=== PATIENT | female | born 2000 | race Two or more races ===

== ENCOUNTER 2024-06-02 05:19 | Day surgery (SDC) | payer MEDICAID, SELFPAY ==
[2024-06-02] VITALS (17 sets, daily range): BP systolic 103–123; BP diastolic 63–88; PULSE 99–125; RESP 13–24; TEMP 36.2–37.3; O2SAT 95–100; BMI 33.3; BMI 34.0
--- NOTE | 2024-06-02 05:50 | PD.EDRME ---
Rapid Medical Screening Exam E Arrival date/time: 06/02/24 05:19 23-year-old female status post elective reports with complaints of shortness of breath and dizziness Chief Complaint: Shortness of Breath/Dyspnea Vital signs: Vital Signs Temperature 98.9 F 06/02/24 05:33 Pulse Rate 125 H 06/02/24 05:33 Respiratory Rate 24 H 06/02/24 05:33 Blood Pressure 116/77 06/02/24 05:33 Pulse Oximetry (%) 100 06/02/24 05:33 Oxygen Delivery Method Room Air 06/02/24 05:33
[2024-06-02 06:21] LABS: Collection Type, Urine Clean Catch
[2024-06-02 06:22] LABS: Alanine Aminotransferase 11 U/L (10-49); Albumin, Serum 3.6 gm/dL (3.5-5.0); Albumin/Globulin Ratio 1.9 (1.2-2.2); Alkaline Phosphatase 38 U/L (46-116); Anion Gap 7 (7-16); Aspartate Amino Transferase 23 U/L (0-34); BUN/Creatinine Ratio 15 Ratio (12-20); Bilirubin,Total 0.2 mg/dL (0.3-1.2); Blood Urea Nitrogen 9 mg/dL (9-23); Calcium 8.4 mg/dL (8.3-10.6); Calcium (Corrected) 8.7 mg/dL (8.5-10.1); Carbon Dioxide 25.6 mMol/L (20.0-31.0); Chloride 109 mMol/L (98-107); Creatinine (Component) 0.6 mg/dL (0.6-1.3); Estimated Creatinine Clearance 160.9 mL/min (>60); Globulin 1.9 gm/dL (2.3-3.5); Glucose 110 mg/dL (74-106); Osmolality,Calculated 282 (275-295); Sodium 142 mMol/L (136-145); Total Protein 5.5 gm/dL (5.7-8.2); eGFR > 60 See Note
[2024-06-02 06:49] LABS: Basophils % (Auto) 0 % (0-2.5); Eosinophils % (Auto) 0 % (0-10); Immature Granulocytes % (Auto) 1 % (0-0); Immature Granulocytes Auto 0.12 Thou/mm3 (0.00-0.00); Lymphocytes # (Auto) 2.6 Thou/mm3 (1.0-4.8); Lymphocytes % (Auto) 26 % (10-50); Mean Corpuscular HGB Conc 33.3 g/dl (31.0-37.0); Mean Corpuscular Hemoglobin 32.3 pg (25.0-35.0); Mean Corpuscular Volume 97 fL (80-100); Monocytes # (Auto) 0.5 Thou/mm3 (0.0-0.8); Monocytes % (Auto) 5 % (0-12); Neutrophils # (Auto) 6.6 Thou/mm3 (1.8-7.7); Neutrophils % (Auto) 67 % (37-80); Nucleated Red Blood Cell # 0.03 Thou/mm3 (0.00-0.00); Nucleated Red Blood Cell % 0 /100 WBC (0); Platelet Count 211 Thou/mm3 (140-440); RDW Standard Deviation 49.2 fL (36.4-46.3); Red Blood Count 1.61 Miln/mm3 (4.00-5.20)
[2024-06-02 07:07] LABS: Hematocrit 15.6 % (36.0-46.0); Hemoglobin 5.2 g/dL (12.0-16.0)
--- NOTE | 2024-06-02 07:34 | PC.NURSE ---
Pt. here from home to room 18, pt. crying saying she had a miscarriage. Pt. states she is . Pt. states she has a 5 year old son at home. Offered tissues and to see if pt. wanted any family bedside and pt. states no at this time.
[2024-06-02 07:46] LABS: Bilirubin,Urine Negative (Negative); Blood,Urine 2+ (Negative); Clarity,Urine Clear (Clear/Hazy); Color,Urine Lt-Yellow (Lt Yel-Yel); Culture Indicated,Urine Not Indicated; Glucose, Urine Negative (Negative); Ketones,Urine Negative (Negative); Leukocyte Esterase,Urine Negative (Negative); Nitrite,Urine Negative (Negative); Protein,Urine Negative (Neg - Trace); RBC,Urine 5 /hpf (0-3); Specific Gravity,Urine 1.018 (1.001-1.035); Squamous Epithelial Cell,Urine 2 /hpf (0-5); Urobilinogen,Urine Negative mg/dL (0.0-1.0); WBC,Urine 3 /hpf (0-5)
--- NOTE | 2024-06-02 07:54 | PC.NURSE ---
Pt. s/o at bedside.
--- NOTE | 2024-06-02 09:05 | EDNOTE_ITS ---
ED General RME/HPI General Chief complaint: Shortness of Breath/Dyspnea Stated complaint: SOB, HEADACHE AND VAGINAL BLEEDING Time Seen by Provider: 06/02/24 08:36 Arrival date/time: 06/02/24 05:19 RME / HPI RME / HPI narrative: Patient is a 23 years old female s/p recent elective medical presented to the ED complaining of SOB and vaginal bleeding. She report she had medical at 4 weeks of gestation in clinic on 05/29/2024 and developed vaginal bleeding since then which never resolved. She reports that she started feeling short of breath yesterday and was progressively worse. She also reports associated palpitations, weakness, chills and headache. She denies any fever, chest pain, difficulty urinating or dysuria symptoms. She reports shooting abdominal pain on palpation. The blood is not a foul smelling per patient. Her boyfriend is at the bedside. Related Data Previous Rx's ?Medication ?Instructions ?Recorded doxycycline hyclate 100 mg capsule 100 mg PO BID #6 ca ps 06/02/24 ferrous sulfate 325 mg (65 mg 325 mg PO QDAY #60 tabs 06/02/24 iron) tablet ibuprofen 800 mg tablet 800 mg PO Q8H PRN pain #30 t abs 06/02/24 Allergies Allergy/AdvReac Type Severity Reaction Status Date / Time bee venom protein (honey bee) Allergy Severe Difficulty Verified 09/03/23 15:24 Breathing Review of Systems Review of Systems Systems Reviewed: All systems reviewed, normal except as documented ED Exam Narrative Physical exam: Gen: Well-developed and well-nourished female. HEENT: NCAT, PERRLA, EOMI, MMM, pale conjunctivae. CVS: normal S1 and S2. Regular tachycardia. No M/R/G. Resp: CTA B/L. No rhonchi, rales, crackles or wheezing. Abd: soft, tender in lower abdomen, non-distended. BS+ in all 4 quadrants. MSK: Good ROM in BUE & BLE. No edema or rash. Neuro: CN II-XII grossly intact. Strength 5/5 in BUE & BLE. Alert and oriented x3. Psych: appropriate mood and affect. Course Course Course Narrative: Patient was found to have Hgb of 5.2 and 2 units of pRBCs were ordered. Pelvic US was positive for retained products of conception. OBGYN consult is ordered, Dr. Sesay was contacted over the phone and agreed to evaluated the patient. Patient was evaluated by OBGYN and will be admitted for D&C. Quality Measures none Orders Category Date Time Status Patient Condition Routine Admission 06/02/24 15:[address] in Surgical Day Care Routine Admission 06/02/24 14:11 Active COVID-19 Screening Questionnaire NOW Care 06/02/24 12:03 Completed Decision to Admit X1 Care 06/02/24 12:03 Completed Intake and Output Routine Care 06/02/24 15:21 Ordered Notify provider NEEDED Care 06/02/24 15:20 Completed Specimen to pathology NOW Care 06/02/24 14:11 Completed Transfuse,blood/blood products NOW Care 06/02/24 08:47 Completed Turn, Cough, and Deep Breathe NEEDED Care 06/02/24 15:21 Completed Consult to Gynecology Stat Cons 06/02/24 12:01 Ordered Diet Regular Diet 06/02/24 Dinner Active Discharge Routine Discharge 06/02/24 21:05 Active US pelvic complete Stat Exams 06/02/24 09:15 Completed CBC Stat Lab 06/02/24 05:50 Completed CBC Timed Lab 06/02/24 18:53 Completed CMP [Comprehensive Metabolic Panel] Stat Lab 06/02/24 05:50 Completed Path Review Blood Smear Stat Lab 06/02/24 05:50 Completed Type and Screen Stat Lab 06/02/24 07:34 Completed UA, C/S IF [Urinalysis, C/S if Indicated] Stat Lab 06/02/24 06:14 Completed rbc [Red Blood Cells] Stat Lab 06/02/24 07:34 Completed Acetaminophen Ivpb [Ofirmev Inj] Med 06/02/24 14:48 Discontinued 1,000 mg in 100 ml IV Q6HR Acetaminophen Ivpb [Ofirmev Inj] Med 06/03/24 00:00 Discontinued 1,000 mg in 100 ml IV Q6HR Dexamethasone Inj [Decadron Inj] Med 06/02/24 14:36 Discontinued 10 mg .ROUTE .STK-MED ONE Doxycycline Inj [Vibramycin Inj] 100 mg Med 06/02/24 13:21 Discontinued Sodium Chloride 0.9% (Pop) [NS 0.9% mini bag] 100 ml IV X1 Ibuprofen Tab [Motrin Tab] Med 06/02/24 16:50 Discontinued 800 mg PO Q8HR PRN Meperidine Inj [Demerol Inj] Med 06/02/24 14:47 Discontinued 12.5 mg IV Q5M PRN Methylergonovine Inj [Methergine Inj] Med 06/02/24 14:54 Discontinued 0.2 mg .ROUTE .STK-MED ONE Methylergonovine Inj [Methergine Inj] Med 06/02/24 13:51 Discontinued 0.2 mg IM X1 ONE Morphine Inj Med 06/02/24 14:47 Discontinued 3 mg IV Q5M PRN Ondansetron Inj [Zofran Inj] Med 06/02/24 14:36 Discontinued 4 mg .ROUTE .STK-MED ONE Ondansetron Inj [Zofran Inj] Med 06/02/24 14:47 Discontinued 4 mg IV X1 ONE Propofol Inj [Diprivan Inj] Med 06/02/24 13:52 Discontinued 200 mg IV .STK-MED ONE fentaNYL INJ [Sublimaze Inj] Med 06/02/24 13:53 Discontinued 100 mcg .ROUTE .STK-MED ONE fentaNYL INJ [Sublimaze Inj] Med 06/02/24 14:47 Discontinued 25 mcg IV Q5M PRN Code Status Routine Oth 06/02/24 15:20 Completed Late Tray Request Routine Oth 06/02/24 18:01 Active Oxygen Delivery PRN RT 06/02/24 14:47 Completed Transfer Order Routine Transfer 06/02/24 15:19 Completed Vital Signs Vital signs: Vital Signs Temperature 98.9 F 06/02/24 05:33 Pulse Rate 125 H 06/02/24 05:33 Respiratory Rate 24 H 06/02/24 05:33 Blood Pressure 116/77 06/02/24 05:33 Pulse Oximetry (%) 100 06/02/24 05:33 Oxygen Delivery Method Room Air 06/02/24 05:33 [facility] Patient data External records reviewed:: [facility] previous records Clinical information provided by:: patient and family Social determinants that could affect healthcare access:: none Patient has the following chronic illnesses:: none How is presenting disease/condition affected by chronic disease/condition?: no chronic disease Evaluation data The following diagnostics were reviewed and interpreted by me:: lab results and radiology exam(s) Lab and/or radiology exams considered but not ordered:: CT AP Interpretation Summary: Findings consistent with retained products of conception and active bleeding. Medications Medications considered but not ordered:: none Medication administrations:: Medication Administration History Discontinued Medications Dexamethasone Sodium Phosphate (Dexamethasone Sod Phos Inj 10 Mg/Ml Vial) Confirm Administered Dose 10 mg .ROUTE .STK-MED ONE Stop: 06/02/24 14:37 Fentanyl Citrate (Fentanyl Cit Inj 50 Mcg/Ml Amp 2ml) Confirm Administered Dose 100 mcg .ROUTE .STK-MED ONE Stop: 06/02/24 13:54 Fentanyl Citrate (Fentanyl Cit Inj 50 Mcg/Ml Amp 2ml) 25 mcg IV Q5M PRN PRN Reason: PAIN SCALE 1-3 (mild Stop: 06/02/24 16:48 Doxycycline Hyclate 100 mg/ (Sodium Chloride) 100 mls @ 100 mls/hr IV X1 ONE Stop: 06/02/24 14:20 Last Admin: 06/02/24 16:37 Dose: Not Given Documented By: TD Non-Admin Reason: Manual Charge by Anesthesia Acetaminophen (Ofirmev Inj) 1,000 mg in 100 mls @ 250 mls/hr IV Q6HR LAURIE Stop: 06/03/24 06:23 Last Admin: 06/02/24 16:46 Dose: 250 mls/hr Documented By: TD Acetaminophen (Ofirmev Inj) 1,000 mg in 100 mls @ 250 mls/hr IV Q6HR [facility] Stop: 06/03/24 12:23 Ibuprofen (Ibuprofen Tab 400 Mg Tablet) 800 mg PO Q8HR PRN PRN Reason: PAIN OR FEVER > 101 Stop: 07/02/24 16:49 Meperidine HCl (Meperidine Inj 50 Mg/Ml Vial) 12.5 mg IV Q5M PRN PRN Reason: PAIN SCALE 1-3 (mild Stop: 06/02/24 16:48 Methylergonovine Maleate (Methylergonovine Inj 0.2 Mg/Ml Vial) 0.2 mg IM X1 ONE Stop: 06/02/24 13:52 Last Admin: 06/02/24 16:38 Dose: Not Given Documented By: TD Non-Admin Reason: Manual Charge by Anesthesia Methylergonovine Maleate (Methylergonovine Inj 0.2 Mg/Ml Vial) Confirm Administered Dose 0.2 mg .ROUTE .STK-MED ONE Stop: 06/02/24 14:55 Morphine Sulfate (Morphine Sulf Inj 10 Mg/Ml Vial) 3 mg IV Q5M PRN PRN Reason: PAIN SCALE 4-6 (Moderate Stop: 06/02/24 16:48 Ondansetron HCl (Ondansetron Inj 2 Mg/Ml Inj 2 Ml) Confirm Administered Dose 4 mg .ROUTE .STK-MED ONE Stop: 06/02/24 14:37 Ondansetron HCl (Ondansetron Inj 2 Mg/Ml Inj 2 Ml) 4 mg IV X1 ONE Stop: 06/02/24 14:48 Last Admin: 06/02/24 17:32 Dose: Not Given Documented By: TD Non-Admin Reason: no nausea Propofol (Propofol Inj 10 Mg/Ml Vial 20 Ml) Confirm Administered Dose 200 mg IV .STK-MED ONE Stop: 06/02/24 13:53 Zofran 4 mg x1. Consultations Consultation(s) initiated? (list below): Yes Consultation #1 (Physician, Specialty, Details): Dr. Sesay, OBGYN, possible D&C. Diagnosis Differential Diagnosis ED Complaint MDM: Acute appendicitis, ovarian torsion, ectopic , retained POC Most likely diagnosis given after review of the tests above:: Retained products of conception s/p medical Admission Indicated Admission indicated?: indicated Explain why admission is indicated or not indicated:: Patient is actively bleeding and has retained products of conception s/p medical , she needs emergent D&C and admission for close observation and blood transfusion. Admission Request Was there a request for admission?: Yes Admission Attestation Admission request attestation: Discussed case with Dr. Sesay from OBGYN service regarding admission. Discussed patients ED course, exam findings, labs, and radiology results. The OBGYN agrees to accept the patient for admission. Disposition Plan Disposition Plan: Admit Medical Decision Making MDM Narrative MDM Narrative: Based on history, radiological and laboratory findings patient has retained products of conception s/p medical and severe anemia requiring blood transfusion. She will need an emergent D&C and admission for closer observation. Differential Diagnosis Differential Diagnosis: Acute appendicitis, ovarian torsion, ectopic , retained POC Lab Data 06/02/24 18:53 06/02/24 05:50 Labs: Lab Results 06/02/24 06/02/24 06/02/24 Range/Units 05:50 06:14 07:34 WBC 10.0 (3.6-11.0) Thou/mm3 RBC 1.61 L* (4.00-5.20) Miln/mm3 Hgb 5.2 L* (12.0-16.0) g/dL Hct 15.6 L* (36.0-46.0) % MCV 97 (80-100) fL MCH 32.3 (25.0-35.0) pg MCHC 33.3 (31.0-37.0) g/dl RDW Std Deviation 49.2 H (36.4-46.3) fL Plt Count 211 (140-440) Thou/mm3 Neut % (Auto) 67 (37-80) % Lymph % (Auto) 26 (10-50) % [place] % (Auto) 5 (0-12) % Eos % (Auto) 0 (0-10) % Baso % (Auto) 0 (0-2.5) % Neut # (Auto) 6.6 (1.8-7.7) Thou/mm3 Lymph # (Auto) 2.6 (1.0-4.8) Thou/mm3 [place] # (Auto) 0.5 (0.0-0.8) Thou/mm3 Eos # (Auto) 0.0 (0.0-0.5) Thou/mm3 Baso # (Auto) 0.0 (0.0-0.2) Thou/mm3 Immature Gran # (Auto) 0.12 H (0.00-0.00) Thou/mm3 Absolute Nucleated RBC 0.03 H (0.00-0.00) Thou/mm3 Immature Gran % 1 H (0-0) % Nucleated RBC % 0 (0) /100 WBC Smear Path Review Sent to Pathologist Sodium 142 (136-145) mMol/L Potassium 4.0 (3.4-5.1) mMol/L Chloride 109 H (98-107) mMol/L Carbon Dioxide 25.6 (20.0-31.0) mMol/L Anion Gap 7 (7-16) BUN 9 (9-23) mg/dL Creatinine 0.6 (0.6-1.3) mg/dL Estim Creat Clear Calc 160.9 (>60) mL/min eGFR > 60 (60 - ) See Note BUN/Creatinine Ratio 15 (12-20) Ratio Glucose 110 H (74-106) mg/dL Calculated Osmolality 282 (275-295) Calcium 8.4 (8.3-10.6) mg/dL Corrected Calcium 8.7 (8.5-10.1) mg/dL Total Bilirubin 0.2 L (0.3-1.2) mg/dL AST 23 (0-34) U/L ALT 11 (10-49) U/L Alkaline Phosphatase 38 L (46-116) U/L Total Protein 5.5 L (5.7-8.2) gm/dL Albumin 3.6 (3.5-5.0) gm/dL Globulin 1.9 L (2.3-3.5) gm/dL Albumin/Globulin Ratio 1.9 (1.2-2.2) Ur Collection Type Clean Catch Urine Color Lt-Yellow (Lt Yel-Yel) Urine Clarity Clear (Clear/Hazy) Urine pH 7.0 (5.0-7.0) Ur Specific [place] 1.018 (1.001-1.035) Urine Protein Negative (Neg - Trace) Urine Glucose (UA) Negative (Negative) Urine Ketones Negative (Negative) Urine Blood 2+ A (Negative) Urine Nitrite Negative (Negative) Urine Bilirubin Negative (Negative) Urine Urobilinogen (Auto) Negative (0.0-1.0) mg/dL Ur Leukocyte Esterase Negative (Negative) Urine RBC 5 H (0-3) /hpf Urine WBC 3 (0-5) /hpf Ur Squamous Epith Cells 2 (0-5) /hpf Urine Bacteria None (None) Ur Culture Indicated? Not Indicated Blood Type O Positive Antibody Screen NEGATIVE Crossmatch See Detail Blood Bank Wristband ID Yes 06/02/24 Range/Units 18:53 WBC 14.1 H D (3.6-11.0) Thou/mm3 RBC 2.83 L (4.00-5.20) Miln/mm3 Hgb 8.7 L D (12.0-16.0) g/dL Hct 25.0 L (36.0-46.0) % MCV 88 (80-100) fL MCH 30.7 (25.0-35.0) pg MCHC 34.8 (31.0-37.0) g/dl RDW Std Deviation 53.9 H (36.4-46.3) fL Plt Count 218 (140-440) Thou/mm3 Neut % (Auto) 93 H (37-80) % Lymph % (Auto) 5 L (10-50) % [place] % (Auto) 1 (0-12) % Eos % (Auto) 0 (0-10) % Baso % (Auto) 0 (0-2.5) % Neut # (Auto) 13.1 H (1.8-7.7) Thou/mm3 Lymph # (Auto) 0.8 L (1.0-4.8) Thou/mm3 [place] # (Auto) 0.1 (0.0-0.8) Thou/mm3 Eos # (Auto) 0.0 (0.0-0.5) Thou/mm3 Baso # (Auto) 0.0 (0.0-0.2) Thou/mm3 Immature Gran # (Auto) 0.18 H (0.00-0.00) Thou/mm3 Absolute Nucleated RBC 0.03 H (0.00-0.00) Thou/mm3 Immature Gran % 1 H (0-0) % Nucleated RBC % 0 (0) /100 WBC Smear Path Review Sodium (136-145) mMol/L Potassium (3.4-5.1) mMol/L Chloride (98-107) mMol/L Carbon Dioxide (20.0-31.0) mMol/L Anion Gap (7-16) BUN (9-23) mg/dL Creatinine (0.6-1.3) mg/dL Estim Creat Clear Calc (>60) mL/min eGFR (60 - ) See Note BUN/Creatinine Ratio (12-20) Ratio Glucose (74-106) mg/dL Calculated Osmolality (275-295) Calcium (8.3-10.6) mg/dL Corrected Calcium (8.5-10.1) mg/dL Total Bilirubin (0.3-1.2) mg/dL AST (0-34) U/L ALT (10-49) U/L Alkaline Phosphatase (46-116) U/L Total Protein (5.7-8.2) gm/dL Albumin (3.5-5.0) gm/dL Globulin (2.3-3.5) gm/dL Albumin/Globulin Ratio (1.2-2.2) Ur Collection Type Urine Color (Lt Yel-Yel) Urine Clarity (Clear/Hazy) Urine pH (5.0-7.0) Ur Specific [place] (1.001-1.035) Urine Protein (Neg - Trace) Urine Glucose (UA) (Negative) Urine Ketones (Negative) Urine Blood (Negative) Urine Nitrite (Negative) Urine Bilirubin (Negative) Urine Urobilinogen (Auto) (0.0-1.0) mg/dL Ur Leukocyte Esterase (Negative) Urine RBC (0-3) /hpf Urine WBC (0-5) /hpf Ur Squamous Epith Cells (0-5) /hpf Urine Bacteria (None) Ur Culture Indicated? Blood Type Antibody Screen Crossmatch Blood Bank Wristband ID Discharge Plan Plan Patient Disposition: Admit Acute Care w/in Hospital Patient condition on transfer: Stable Problem List Clinical Impression: Acute blood loss anemia, Retained products of conception Patient/Caregiver Discharge Instructions Discharge Activity: activity as tolerated and other Other Activity Instructions:: vaginal rest for 2 weeks, 2 days off from work to rest and recover Diet Instructions: regular diet
--- NOTE | 2024-06-02 09:15 | XR_ITS ---
Examination: Pelvic ultrasound, transabdominal, complete Technique: Transabdominal ultrasound of the pelvis performed using grayscale imaging Date and time of exam: June 02, 2024 1030 hrs. Indications: Status post May 29, 2024 with vaginal bleeding Findings: Uterus 11.1 cm with retained product of conception measuring up to 3.3 cm in the cervix Right ovary 3.2 cm arterial flow Left ovary 3.5 cm arterial flow 32 mm cyst Impression: Positive for retained products of conception
--- NOTE | 2024-06-02 11:20 | PC.NURSE ---
Pt. signed consent for blood transfusion.
--- NOTE | 2024-06-02 11:24 | PC.NURSE ---
Pt. here from home to room 18, pt. states she was SOB even when she laid down, pt. states she felt like she was going to pass out, pt. states she has been vaginal bleeding since Monday, pt. states she had a mis carry on Monday. Pt. states she is . Pt. states today she couldn't even open her eyes because her head hurt so bad. Pt. states she has been using 3 fabiola pads a day.
--- NOTE | 2024-06-02 11:25 | PC.NURSE ---
Pt. lips are pale and pt.'s pale in her face.
--- NOTE | 2024-06-02 12:35 | PC.NURSE ---
Dr. Sesay is bedside talking with pt.
--- NOTE | 2024-06-02 13:05 | PD.GYNHP ---
Documentation for date of: 06/02/24 HISTOLOGY AIDE - HPI History of Present Illness History of present illness: Alia is a 23yo presenting to ER with shortness of breath since 05/30 after taking oral medication for medical termination of on 05/29. She states within an hour of taking the medication (prescribed by a practitioner in [place]- she can't remember the name of the facility), she began bleeding. She had heavy bleeding, cramping, passage of tissue on 05/29 and 05/30, then began feeling short of breath on 05/30. She didn't have further passage of tissue and bleeding was more like a period since that time. No syncope. She has history of 1 uncomplicated term in 2019. Review of Systems Review of Systems Narrative Review of Systems: Review of Systems Systems Reviewed: All systems reviewed, normal except as documented Constitutional Constitutional: Denies body ache(s), Denies chills, Denies fever(s) and Denies headache(s) ENT Ears, Nose, Mouth, and Throat: Denies headache(s) and Denies vertigo Cardiovascular Cardiovascular: Denies chest pain, Denies palpitations, endorses shortness of breath, and Denies syncope Respiratory Respiratory: Denies cough, endorses shortness of breath Gastrointestinal Gastrointestinal: Denies nausea and Denies vomiting Neurologic Neurologic: Denies convulsions, Denies headache(s), Denies other visual disturbances, Denies syncope and Denies vertigo Past Medical History Family History OTHER FAMILY HX: non-contributory Surgical History OTHER SURGICAL HX: cholecystectomy 2019 Social History SOCIAL: Denies tobacco use and illicit drug use. Rare ETOH. Past Medical History Comments PMH COMMENT: BMI 33.3 Bee allergy No hx of abnormal pap smears or STIs Meds Home Medications and Allergies Allergies Allergy/AdvReac Type Severity Reaction Status Date / Time bee venom protein (honey bee) Allergy Severe Difficulty Verified 09/03/23 15:24 Breathing Exam - HISTOLOGY AIDE Vital Signs Temp Pulse Resp BP Pulse Ox O2 Del Method O2 Flow Rate 98.2 F 119 H 19 110/63 100 Room Air 0 06/02/24 12:30 06/02/24 12:30 06/02/24 12:30 06/02/24 12:30 06/02/24 12:30 06/02/24 11:34 06/02/24 12:15 Narrative Exam General: well developed, well nourished, no acute distress, conversant Cardiac: tachycardia Lungs: breathing without distress Abdomen: soft, non-tender, no rebound or guarding Extremities: no BLE edema SSE (female customer solutions teammate present): NEFG, small amount of blood in vaginal vault. 4cm clot +/- tissue extruding from the cervix. This was grasped with ring forceps and removed. Once removed, bright red bleeding began. Several 4x4 gauze pads used to place pressure on the cervix and remove the blood, but it continued. Unable to obtain good visualization (related to bleeding) to further explore within cervix for POCs. HISTOLOGY AIDE - Results Labs 06/02/24 05:50 06/02/24 05:50 Labs: Short CBC 06/02/24 Range/Units 05:50 WBC 10.0 (3.6-11.0) Thou/mm3 Hgb 5.2 L* (12.0-16.0) g/dL Hct 15.6 L* (36.0-46.0) % Plt Count 211 (140-440) Thou/mm3 BMP 06/02/24 05:50 Sodium 142 Potassium 4.0 Chloride 109 H Carbon Dioxide 25.6 BUN 9 Creatinine 0.6 Glucose 110 H Calcium 8.4 Liver Function 06/02/24 Range/Units 05:50 Total Bilirubin 0.2 L (0.3-1.2) mg/dL AST 23 (0-34) U/L ALT 11 (10-49) U/L Alkaline Phosphatase 38 L (46-116) U/L Albumin 3.6 (3.5-5.0) gm/dL Urine 06/02/24 Range/Units 06:14 Urine Color Lt-Yellow (Lt Yel-Yel) Urine Clarity Clear (Clear/Hazy) Urine pH 7.0 (5.0-7.0) Ur Specific [place] 1.018 (1.001-1.035) Urine Protein Negative (Neg - Trace) Urine Glucose (UA) Negative (Negative) Impressions Impression: Examination: Pelvic ultrasound, transabdominal, complete Technique: Transabdominal ultrasound of the pelvis performed using grayscale imaging Date and time of exam: June 02, 2024 1030 hrs. Indications: Status post May 29, 2024 with vaginal bleeding Findings: Uterus 11.1 cm with retained product of conception measuring up to 3.3 cm in the cervix Right ovary 3.2 cm arterial flow Left ovary 3.5 cm arterial flow 32 mm cyst Impression: Positive for retained products of conception Assessment and Plan Assessment and plan (1) Incomplete with delayed or excessive hemorrhage: Status: Acute Assessment and plan: Alia is a 23yo s/p medical elective on 05/29 with excessive bleeding related to retained products of conception and resultant severe anemia causing dyspnea. Hgb 5.2. She is receiving 1st unit of pRBCs (2 planned). Pelvic ultrasound showed 3.3cm retained POCs in cervix. Tachycardia, normotensive. Exam significant for 4cm clot/tissue extruding from cervix, that once removed, resulted in bleeding that obscured good visualization for further exam. Given inability to obtain good visualization to try for further exploration within cervix for any other POCs, recommend we proceed to OR for suction dilation and curettage. Plan: -sewing room supervisor notified of need for STAT suction D&C and OR team is being called in -Continue blood transfusion and IVF -NPO -Discussed recommended procedure with patient. Discussed all r/b/a to include: bleeding (already receiving blood transfusion), infection, injury to nearby structures such as bladder, bowel, ureters, blood vessels, nerves with possible need for abdominal incision to repair. Answered all questions to her satisfaction. -IV abx ppx: doxycycline 100mg -Will proceed to OR when team is ready (2) Severe anemia: Status: Acute (3) Transfusion of blood during current hospitalisation: Status: Acute Quality Measures Quality Measures none
--- NOTE | 2024-06-02 13:23 | PC.NURSE ---
Dr. Sesay is bedside and states pt. will go to the OR in 30 minutes, Dr. Sesay states ok to hang pt.'s 2nd unit of blood.
--- NOTE | 2024-06-02 14:12 | PC.NURSE ---
Pt. left the ER with Kirstin GARZON to go to OR, 2nd unit of blood transfusing, pt. tolerating well.
--- NOTE | 2024-06-02 15:20 | SUR.PHASEI ---
received pt and report from DURAN Fulton and Dr. Collins. Pt resting with eyes closed, responds to voice appropriately. vss. no discharge noted to fabiola pad. Pt denies any pain at this time. will continue to monitor.
--- NOTE | 2024-06-02 15:29 | PD.GYNPROC ---
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 Hgb 5.2. Blood transfusion initiated in the ER. Pelvic ultrasound showed 3.3cm retained products of conception in the cervix. She is tachycardic, normotensive. Exam significant for 4cm clot/tissue extruding from cervix, that once removed, resulted in bleeding that obscured good visualization for further exam. Given inability to obtain good visualization to try for further exploration within cervix for any other POCs, I recommended that we proceed to OR for suction dilation and curettage. Pre-Op diagnosis: Severe anemia resultant of persistent vaginal bleeding from retained products of conception within the cervix after medical elective Post-Op diagnosis: Severe anemia resultant of persistent vaginal bleeding from retained products of conception within the cervix after medical elective Anesthesia type: General Procedure description: After obtaining informed consent, the patient was taken to the operating room where she underwent general anesthesia with LMA. She was placed in the low lithotomy position, and the perineum and vagina were prepped and draped in sterile fashion. She was given doxycycline 100mg IV x1 for surgical prophylaxis. The bivalved speculum was inserted into the vagina. Large blood clot obscuring cervix was removed with sponge-stick. Clot within the cervix was removed with a sponge-stick as well. This resulted in renewed brisk bleeding from within the cervix. The anterior segment of the cervix was grasped with a single-tooth tenaculum. The uterus sounded to 8cm. The cervix was already open and did not require dilation. An 8mm suction curette was introduced to the fundus of the uterus. Suction was activated at 60cm of water. 3 passes of suction curettage were performed- no appreciable tissue was retrieved from within the uterus (consistent with ultrasound), but on the second pass, a piece of tissue was pulled up with the suction from within the cervix. A sharp curette was used within uterus and cervix and good cry was noted in 360 degrees. 2 final passes with the suction curette insured no further tissue remained within uterus or cervix. Patient was given 0.2mg IM methergine and speculum was removed. Bimanual massage was performed until good uterine tone was noted both in the fundus and lower uterine segment. Speculum re-placed in the vagina and complete hemostasis was noted. The tenaculum was removed and tenaculum sites noted to be hemostatic. The bivalved speculum was removed. The patient was transferred to the recovery room in good condition. Sponge, lap, needle, instrument counts correct x2. Fluids: crystalloid (100) and blood (Receiving 2nd unit of pRBCs during procedure) Urine output (mL): 500 (by In and Out catheter) Specimen: other (intra-uterine contents/products of conception) Estimated blood loss (ml): 100 Findings: Large clot in vagina and behind that, large clot within cervix. Once clot was removed, bleeding resumed. Uterus sounded to 8cm. No obvious tissue within suction curette within the uterus, but one pass down through the cervix picked up tissue. Complications: none Surgical staff Operation Date: 06/02/24 14:45 <No data on this case meets the specified criteria> Diagnosis Discharge Diagnosis (1) Incomplete with delayed or excessive hemorrhage: Status: Acute (2) Severe anemia: Status: Acute (3) Transfusion of blood during current hospitalisation: Status: Acute Problem List Completed Was Problem List Reviewed/Reconciled?: Yes
[2024-06-02 15:34] LABS: Path Review Blood Smear Sent to Pathologist
--- NOTE | 2024-06-02 15:37 | SUR.PHASEI ---
pt recovering well, no distress noted. Pt denies any pain or nausea. vss. scant sanguinous drainage noted to peripad. will continue to monitor.
--- NOTE | 2024-06-02 15:40 | SUR.PHASEI ---
x3 attempts to insert a second IV, unsuccessful. Pt tolerated well.
--- NOTE | 2024-06-02 15:48 | SUR.PHASEI ---
pt recoverying well, scant discharge noted to peripad. vss. pt denies any pain or nausea. report given to DURAN Hoover.
--- NOTE | 2024-06-02 15:48 | SUR.PHASEI ---
while giving report to DURAN Hoover, prbc completed in PACU. prbc brought to the PACU from OR with the unit of pRBC already transfusing. no s/s of transfusion reaction during the recovery phase in PACU. DURAN Hoover made aware, blood transfusion completed.
[2024-06-02] MEDS: ACETAMINOPHEN IVPB 1,000 MG/100 ML VIAL 250 MG IV (16:46)
[2024-06-02 19:03] LABS: Basophils % (Auto) 0 % (0-2.5); Eosinophils % (Auto) 0 % (0-10); Immature Granulocytes % (Auto) 1 % (0-0); Immature Granulocytes Auto 0.18 Thou/mm3 (0.00-0.00); Lymphocytes # (Auto) 0.8 Thou/mm3 (1.0-4.8); Lymphocytes % (Auto) 5 % (10-50); Mean Corpuscular HGB Conc 34.8 g/dl (31.0-37.0); Mean Corpuscular Hemoglobin 30.7 pg (25.0-35.0); Mean Corpuscular Volume 88 fL (80-100); Monocytes # (Auto) 0.1 Thou/mm3 (0.0-0.8); Monocytes % (Auto) 1 % (0-12); Neutrophils # (Auto) 13.1 Thou/mm3 (1.8-7.7); Neutrophils % (Auto) 93 % (37-80); Nucleated Red Blood Cell # 0.03 Thou/mm3 (0.00-0.00); Nucleated Red Blood Cell % 0 /100 WBC (0); Platelet Count 218 Thou/mm3 (140-440); RDW Standard Deviation 53.9 fL (36.4-46.3); Red Blood Count 2.83 Miln/mm3 (4.00-5.20); White Blood Count 14.1 Thou/mm3 (3.6-11.0)
[2024-06-02 19:09] LABS: Hemoglobin 8.7 g/dL (12.0-16.0)
--- NOTE | 2024-06-02 21:00 | PC.NURSE ---
Dr. Sesay in to see pt plan to discharge home
--- NOTE | 2024-06-02 21:05 | PD.GYNDS ---
Planned Discharge Date 06/02/24 DS: Providers Provider Date of admission: 06/02/2024 Primary care physician: Jarvis Urias MD Attending Provider on Admission: Lucero Sesay MD Consults: 06/02/24 12:01 Consult to Gynecology Stat Comment: Consulting Provider: Lucero Sesay Attending Provider on DC: Lucero Sesay MD Discharging Provider: Lucero Sesay MD DS: Diagnosis Discharge Diagnosis (1) Incomplete with delayed or excessive hemorrhage: Status: Acute (2) Severe anemia: Status: Acute (3) Transfusion of blood during current hospitalisation: Status: Acute Problem List Completed Was Problem List Reviewed/Reconciled?: Yes Hospital Course Hospital Course Hospital course: Alia is a 23yo presenting to ER with shortness of breath since 05/30 after taking oral medication for medical termination of on 05/29. She was diagnosed with severe anemia resultant of persistent vaginal bleeding from retained products of conception within the cervix. She is doing well s/p uncomplicated suction dilation and curettage earlier today. She finished 2nd unit of pRBCs and post-transfusion Hgb is 8.7 (from starting 5.2). She is meeting all milestones and feels ready for discharge home. She is ambulating without lightheadedness, tolerating regular diet no n/v, spontaneously voiding without issue. She has no chest pain or shortness of breath. No fevers or chills. Minimal, appropriate discomfort. Vitals normal, benign exam. Hemodynamically stable with no evidence of infection. 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 Temp Pulse Resp BP Pulse Ox O2 Del Method O2 Flow Rate 97.5 F 99 17 116/77 98 Room Air 4 06/02/24 20:00 06/02/24 20:06/02/24 20:06/02/24 20:00 06/02/24 20:00 06/02/24 20:00 06/02/24 15:30 Narrative Exam General: well developed, well nourished, no acute distress, conversant Cardiac: normal heart rate Lungs: breathing without distress Abdomen: soft, non-tender, no rebound or guarding Extremities: no edema of BLE Discharge Plan Plan Patient Disposition: HOME (Self Care) Patient condition on transfer: Stable Prescriptions/Referrals Prescriptions/Med Rec: New ibuprofen 800 mg tablet 800 mg PO Q8H PRN (Reason: pain) Qty: 30 0RF doxycycline hyclate 100 mg capsule 100 mg PO BID Qty: 6 0RF Discontinued hydrocodone-acetaminophen 5-325 mg tablet 1 tab PO TID MDD 3 PRN (Reason: pain) Qty: 7 0RF meloxicam 7.5 mg tablet 7.5 mg PO QDAY Qty: 10 0RF Referrals: Jarvis Urias MD [Primary Care Provider] - In 1 week Patient/Caregiver Discharge Instructions Discharge Activity: activity as tolerated and other Other Discharge Activity Instructions:: vaginal rest for 2 weeks, 2 days off from work to rest and recover Other Discharge Diet Instructions: regular diet Education Materials: When You Need a Blood Transfusion ..., Anemia, Dilation and Curettage Print Language: [place] Activity Restrictions/Additional Instructions: Follow up with obgyn within the next 2 to 4 weeks for post-op visit and discuss contraceptive options further Stand Alone Forms: [facility] Award Info., Patient Portal Info Letter, DC from Surgery Discharge Order Discharge Orders: Discharge (Routine); Ordered 06/02/24 Ordered By: Lucero Sesay
--- NOTE | 2024-06-02 21:45 | PC.NURSE ---
Discharge instructions provided to pt along with work note, IV 20g to left hand discontinued. Pt waiting for to come back for ride home.
--- NOTE | 2024-06-02 22:13 | PC.NURSE ---
Dr. Sesay in to see pt, plan to discharge home
--- NOTE | 2024-06-02 22:27 | PC.NURSE ---
Pt taken down via wheelchair all belongings in place.
== END 2024-06-02 22:28 | disposition home or self-care (01) ==
LOC: SERX 13:33 → S2EX 14:14 → S3NX 06-03 06:50
PROVIDERS: Physician Assistant; Emergency Provider Student in an Organized Health Care Education/Training Program; PCP Family Medicine; Referring Provider Obstetrics & Gynecology; Visit Provider Obstetrics & Gynecology
PROC: (CPT 58120; principal; 2024-06-02 14:30)
DX: O03.4 Incomplete spontaneous abortion without complication (principal); Z90.49 Acquired absence of other specified parts of digestive tract; D62 Acute posthemorrhagic anemia
CPT/HCPCS: 59812; 36415; 36430; 76856; 80053; 81001; 85025; 86850; 86900; 86901; 86923; 99285; A4217; J0131; J1100; J2210; J2405; J2704; J3010; P9016

== ENCOUNTER 2024-09-21 23:09 | Emergency (ER) | payer MEDICAID, SELFPAY ==
[2024-09-21 23:13] VITALS: BMI 32.4
[2024-09-21 23:41] VITALS: BP 136/88; PULSE 78; RESP 18; TEMP 36.6; O2SAT 100
--- NOTE | 2024-09-21 23:56 | EDNOTE_ITS ---
ED OB Contraction Preg RMI/HPI General Chief complaint: Abdominal Pain Stated complaint: PREG RLQ ABD PAIN Time Seen by Provider: 09/21/24 23:41 Arrival date/time: 09/21/24 23:09 RME / HPI RME / HPI Narrative: This section includes all my notes and documentations, including HPI, PE, and ED course. Tyson Calvillo MD HPI: 23 y/o female presents with pelvic cramping and spotting x approximately 12 hours. LMP was 08/13/2024. Estimated gestational age is 5/7 weeks. Denies fever, nausea, and vomiting. No other complaints. ROS: All negative except as documented in HPI. Physical Exam: General: Alert and oriented. No acute distress when remaining still. Eyes: Conjunctivae and lids clear. ENT: No nasal congestion. Neck: Supple. Heart: RRR. Lungs: No respiratory distress. Good air movement. No rhonchi, wheezing, rales. Abdomen: Soft and nontender. Normal bowel sounds. No distension. No rebound or guarding. Back: No CVA tenderness. Skin: Warm and dry. Neuro: Alert and oriented X 3. I reviewed all diagnostic test results: My review of the US report is IUP but no cardiac activity. Blood tests unremarkable except hCG 07630. At this point, diagnoses include: Threatened miscarriage. Recommended expectant management. Based on my best medical judgment, made decision no further evaluation or treatment indicated at this time. Patient understands and agrees to the discharge instructions customized and printed, see below. Discharge Instructions from Dr. Calvillo printed for you: 1.? After evaluation, your is inside the uterus. There is no outside the uterus (ectopic ). 2.? But there is no heart activity. We may be too early. 3.? Only time will tell what will happen. If your symptoms, including bleeding, worsen, you can have a miscarriage. If your symptoms stop, you can have successful . 4.? If you do have a miscarriage, we won't be able to save your baby. Under 20-24 weeks, we can't save the baby. 5.? No sexual activity until cleared by a doctor taking care of you. 6.? See a private doctor on 09/25/2024 for recheck and further care. Ask to review all test results and official radiology reports, to make sure you receive all necessary follow-ups and monitoring. Your hCG ( hormone level) was 10,362.? This doubles every 2 to 3 days in normal . 7.? Seek immediate medical care with intolerable pain, extremely heavy vaginal bleeding (soaking more than 3 pads per hour), or with any concerns. Tyson Calvillo MD Last menstrual period: 08/13/24 Related Data Previous Rx's ?Medication ?Instructions ?Recorded doxycycline hyclate 100 mg capsule 100 mg PO BID #6 ca ps 06/02/24 ferrous sulfate 325 mg (65 mg 325 mg PO QDAY #60 tabs 06/02/24 iron) tablet ibuprofen 800 mg tablet 800 mg PO Q8H PRN pain #30 t abs 06/02/24 Allergies Allergy/AdvReac Type Severity Reaction Status Date / Time bee venom protein (honey bee) Allergy Severe Difficulty Verified 09/21/24 23:19 Breathing Review of Systems Review of Systems Systems Reviewed: All systems reviewed, normal except as documented Past Medical History Past Medical History GASTROINTESTINAL: Positive Gastrointestinal Disorders and Gall Bladder Disease REPRODUCTIVE: Positive Previous Pregnancies Surgical History SURGICAL: Positive Abdominal Surgery and Lumpectomy ED Exam Narrative Physical exam: Refer to HPI Course Quality Measures none Orders Category Date Time Status US OB <= 14 weeks fetus Stat Exams 09/22/24 03:32 Taken Beta HCG,Quantitative Stat Lab 09/21/24 23:54 Completed Bilirubin,Direct Stat Lab 09/21/24 23:54 Completed CBC Stat Lab 09/21/24 23:54 Completed CMP [Comprehensive Metabolic Panel] Stat Lab 09/21/24 23:54 Completed Free T4 (Free Thyroxine) Stat Lab 09/21/24 23:54 Completed Magnesium Stat Lab 09/21/24 23:54 Completed TSH [Thyroid Stimulating Hormone] Stat Lab 09/21/24 23:54 Completed Vital Signs Vital signs: Vital Signs Temperature 97.8 F 09/21/24 23:41 Pulse Rate 78 09/21/24 23:41 Respiratory Rate 18 09/21/24 23:41 Blood Pressure 136/88 H 09/21/24 23:41 Pulse Oximetry (%) 100 09/21/24 23:41 Oxygen Delivery Method Room Air 09/21/24 23:41 Vaginal Bleeding MDM Narrative MDM Narrative: Scribe Attestation: I, Tali Benavidez, am scribing for and in the presence of Dr. Calvillo. Provider Notation: Although this document has been carefully reviewed, there may still be some phonetic and other typographical errors.? These errors are purely grammatical due to imperfections in the software program and should not be construed in any way to? compromise the substance of the patient's medical care during this visit. 23 y/o female presents with pelvic cramping and spotting x approximately 12 hours. LMP was 08/13/2024. Estimated gestational age is 5/7 weeks. Denies fever, nausea, and vomiting. No other complaints. Patient data External records reviewed:: [facility] previous records (Reviewed prior ED records from 06/02/24. Patient was seen for Acute blood loss anemia.) Clinical information provided by:: patient Social determinants that could affect healthcare access:: none Patient has the following chronic illnesses:: Gall Bladder Disease How is presenting disease/condition affected by chronic disease/condition?: uneffected by Evaluation data The following diagnostics were reviewed and interpreted by me:: lab results and radiology exam(s) Lab and/or radiology exams considered but not ordered:: None Interpretation Summary: I reviewed all diagnostic test results: My review of the US report is IUP but no cardiac activity. Blood tests unremarkable except hCG 78327. Medications / Prescriptions Medications or Prescriptions considered but not ordered:: None Medication administrations:: N/A Consultations Consultation(s) initiated? (list below): No Diagnosis Vaginal Bleeding Differential Diagnosis: missed , threatened , dysfunctional uterine bleeding, menometrorrhagia, incomplete , ectopic without intrauterine and vaginal bleeding Most likely diagnosis given after review of the tests above:: Threatened miscarriage Admission Indicated Admission indicated?: not indicated Explain why admission is indicated or not indicated:: With no severe condition needing emergent intervention, there was no indication for admission. Admission Request Was there a request for admission?: No Disposition Plan Disposition Plan: Discharge Discharge Attestation Discharge Attestation: The patient and all family members were given an opportunity to ask questions and understood the discharge instructions. Discharge instructions specifically effects, indications for sooner follow up or return to the emergency department, and the expected course of current diagnosis. Patient condition: Stable Discharge Plan Plan Patient Disposition: HOME (Self Care) Prescriptions/Referrals Prescriptions/Med Rec: No Action ibuprofen 800 mg tablet 800 mg PO Q8H PRN (Reason: pain) Qty: 30 0RF doxycycline hyclate 100 mg capsule 100 mg PO BID Qty: 6 0RF ferrous sulfate 325 mg (65 mg iron) tablet 325 mg PO QDAY Qty: 60 0RF Referrals: No Primary/Family,Physician [Primary Care Provider] - In 1 week Problem List Clinical Impression: Threatened miscarriage Patient/Caregiver Discharge Instructions Discharge Activity: activity as tolerated Education Materials: ED Possible Miscarriage ... Additional Instructions: Discharge Instructions from Dr. Calvillo printed for you: 1.? After evaluation, your is inside the uterus. There is no outside the uterus (ectopic ). 2.? But there is no heart activity. We may be too early. 3.? Only time will tell what will happen. If your symptoms, including bleeding, worsen, you can have a miscarriage. If your symptoms stop, you can have successful . 4.? If you do have a miscarriage, we won't be able to save your baby. Under 20-24 weeks, we can't save the baby. 5.? No sexual activity until cleared by a doctor taking care of you. 6.? See a private doctor on 09/25/2024 for recheck and further care. Ask to review all test results and official radiology reports, to make sure you receive all necessary follow-ups and monitoring. Your hCG ( hormone level) was 10,362.? This doubles every 2 to 3 days in normal . 7.? Seek immediate medical care with intolerable pain, extremely heavy vaginal bleeding (soaking more than 3 pads per hour), or with any concerns. Print Language: German Stand Alone Forms: [facility] Award Info., Patient Portal Info Letter
[2024-09-22 00:04] LABS: Basophils % (Auto) 0 % (0-2.5); Eosinophils # (Auto) 0.1 Thou/mm3 (0.0-0.5); Eosinophils % (Auto) 1 % (0-10); Hematocrit 37.1 % (36.0-46.0); Hemoglobin 13.1 g/dL (12.0-16.0); Immature Granulocytes % (Auto) 0 % (0-0); Immature Granulocytes Auto 0.02 Thou/mm3 (0.00-0.00); Lymphocytes % (Auto) 33 % (10-50); Mean Corpuscular HGB Conc 35.3 g/dl (31.0-37.0); Mean Corpuscular Hemoglobin 31.1 pg (25.0-35.0); Mean Corpuscular Volume 88 fL (80-100); Monocytes # (Auto) 0.7 Thou/mm3 (0.0-0.8); Monocytes % (Auto) 8 % (0-12); Neutrophils # (Auto) 5.1 Thou/mm3 (1.8-7.7); Neutrophils % (Auto) 57 % (37-80); Nucleated Red Blood Cell % 0 /100 WBC (0); Platelet Count 211 Thou/mm3 (140-440); Red Blood Count 4.21 Miln/mm3 (4.00-5.20)
[2024-09-22 00:38] LABS: Alanine Aminotransferase 11 U/L (10-49); Albumin, Serum 4.8 gm/dL (3.5-5.0); Albumin/Globulin Ratio 2.2 (1.2-2.2); Alkaline Phosphatase 61 U/L (46-116); Anion Gap 7 (7-16); Aspartate Amino Transferase 19 U/L (0-34); BUN/Creatinine Ratio 11 Ratio (12-20); Bilirubin,Direct 0.1 mg/dL (0.0-0.3); Bilirubin,Total 0.3 mg/dL (0.3-1.2); Blood Urea Nitrogen 10 mg/dL (9-23); Calcium 9.9 mg/dL (8.3-10.6); Calcium (Corrected) 9.9 mg/dL (8.5-10.1); Chloride 105 mMol/L (98-107); Creatinine (Component) 0.9 mg/dL (0.6-1.3); Estimated Creatinine Clearance 105.9 mL/min (>60); Free T4 (Free Thyroxine) 1.18 ng/dL (0.89-1.76); Globulin 2.2 gm/dL (2.3-3.5); Glucose 83 mg/dL (74-106); Magnesium 1.9 mg/dL (1.6-2.6); Osmolality,Calculated 273 (275-295); Potassium 3.6 mMol/L (3.4-5.1); Sodium 138 mMol/L (136-145); Thyroid Stimulating Hormone 2.55 uIU/mL (0.55-4.78); eGFR > 60 See Note
[2024-09-22 01:05] LABS: Beta HCG,Quantitative 10362 mIU/mL (<5.0)
--- NOTE | 2024-09-22 03:32 | XR_ITS ---
Examination: Complete OB ultrasound, less than 14 weeks, transabdominal Date and time of exam: September 22, 2024 at 0339 hours INDICATIONS: Pelvic cramping and vaginal bleeding beginning 2 days ago Technique: Obstetrical ultrasound images less than 14 weeks performed via transabdominal imaging Findings: Uterus 10.3 cm Intrauterine gestational sac 10 mm corresponding to 5 weeks 5 days gestational age No pole, no cardiac activity Right ovary 4.4 cm arterial flow 17 mm follicular cyst Left ovary is obscured by bowel gas IMPRESSION: Empty intrauterine gestational sac corresponding to 5 weeks 5 days gestational age, no pole, no cardiac activity Recommend short-term follow-up study to exclude embryonic demise
--- NOTE | 2024-09-22 05:27 | PRELIM_ITS ---
Obstetric ultrasound (transabdominal). September 22, 2024 0339 hours Clinical history: Cramping and spotting (GA 5 4/7 weeks) Technique: Real-time ultrasound was performed using Duplex scanning including arterial inflow, venous outflow, color and spectral Doppler analysis of both ovaries. Comparison: No prior study is available for comparison. Findings: A small anechoic sac-like structure is noted in the endometrial cavity. The mean sac diameter measures 0.95cm, corresponding to 5 weeks and 5 days. No pole or yolk sac is seen at this time. The uterus is measuring 10.2x4.7x6.2cm The right ovary measures 4.3x2.9x3.8cm with cyst lesion measuring 1.5x1.2x1.7cm. Right ovary demonstrates normal color flow signal on Doppler evaluation. The left ovary is not visualized due to bowel gas. No adnexal mass is demonstrated. There is no free fluid in the pelvis. Impression: Small anechoic structure in the endometrial cavity without yolk sac or pole. This may represent an early intrauterine gestational sac; however, the possibility of a pseudosac with an occult ectopic cannot be entirely excluded. Recommend correlation with quantitative beta hCG and close sonographic follow-up. Report Electronically Signed By: Lyly Finch 09/22/2024 5:27:03 AM [EST]
== END 2024-09-22 05:05 | disposition home or self-care (01) ==
PROVIDERS: Emergency Provider Emergency Medicine
DX: O20.0 Threatened abortion (principal); Z3A.01 Less than 8 weeks gestation of pregnancy
CPT/HCPCS: 36415; 76801; 80053; 81001; 82248; 83735; 84439; 84443; 84702; 85025; 99284

== ENCOUNTER 2024-10-11 21:27 | Emergency (ER) | payer MEDICAID, SELFPAY ==
[2024-10-11 21:33] VITALS: BP 117/79; PULSE 82; RESP 20; TEMP 37.2; O2SAT 99; BMI 31.3
--- NOTE | 2024-10-11 21:57 | XR_ITS ---
Examination: OB Transvaginal ultrasound of the pelvis, complete Technique: Transvaginal sonographic images pelvis performed using ocampo scale imaging Exam date and time: October 11, 2024, 2219 hours Comparison September 22, 2024 INDICATION: Vaginal bleeding one week FINDINGS: Uterus 10.1 cm, no intrauterine gestation Endometrial stripe 0.4 cm Right ovary 3.0 cm arterial flow 12 mm follicular cyst. Left ovary 2.4 cm arterial flow 18 mm follicular cyst IMPRESSION: No current intrauterine gestation or uterine mass Given the findings of the prior ultrasound, these findings may indicate completed spontaneous
[2024-10-11 22:27] LABS: Collection Type, Urine Clean Catch
--- NOTE | 2024-10-11 22:30 | EDNOTE_ITS ---
<Statement entered by Maris Larry MD - 10/14/24 18:57> As co-signing physician, I was present and available for consult prn. I concur with the plan and care as documented by the midlevel provider. ED OB Contraction Preg RMI/HPI General Chief complaint: Vaginal Bleeding Stated complaint: VAGINAL BLEEDING Time Seen by Provider: 10/11/24 21:56 Arrival date/time: 10/11/24 21:27 23F at approximately 8 weeks and with no significant PMH presents to ED with pelvic cramping and vaginal bleeding for 1 day. Patient was here 3 weeks ago for this and US showed empty gestational sac. Limitations: no limitations Related Data Previous Rx's ?Medication ?Instructions ?Recorded doxycycline hyclate 100 mg capsule 100 mg PO BID #6 ca ps 06/02/24 ferrous sulfate 325 mg (65 mg 325 mg PO QDAY #60 tabs 06/02/24 iron) tablet ibuprofen 800 mg tablet 800 mg PO Q8H PRN pain #30 t abs 06/02/24 Allergies Allergy/AdvReac Type Severity Reaction Status Date / Time bee venom protein (honey bee) Allergy Severe Difficulty Verified 10/11/24 21:28 Breathing Review of Systems Review of Systems Systems Reviewed: All systems reviewed, normal except as documented Constitutional Constitutional: Reports system reviewed and no additional complaints, except as documented, Denies fever(s) and Denies headache(s) ENT Ears, Nose, Mouth, and Throat: Denies disequilibrium and Denies headache(s) Cardiovascular Cardiovascular: Reports system reviewed and no additional complaints, except as documented, Denies chest pain and Denies dyspnea Respiratory Respiratory: Reports system reviewed and no additional complaints, except as documented, Denies cough and Denies dyspnea Gastrointestinal Gastrointestinal: Reports system reviewed and no additional complaints, except as documented, Denies abdominal pain, Denies nausea and Denies vomiting Genitourinary Genitourinary: Reports as per HPI, Reports abnormal vaginal bleeding and Reports pelvic pain Neurologic Neurologic: Reports system reviewed and no additional complaints, except as documented, Denies confusion, Denies disequilibrium and Denies headache(s) Psychiatric Psychiatric: Denies confusion Past Medical History Past Medical History NEUROLOGIC: Negative Neurological Disorders or Seizures CARDIAC: Negative Cardiac Disorders, Congestive Heart Failure, Edema, Cellulitis or Varicose Veins RESPIRATORY: Negative Chronic Obstructive Pulmonary Disease (COPD), Asthma, Tuberculosis, Pulmonary Embolism or Sleep Apnea GASTROINTESTINAL: Positive Gastrointestinal Disorders and Gall Bladder Disease; Negative Hepatitis or Colorectal Cancer GENITOURINARY: Negative Genitourinary Disorders or Renal Disease REPRODUCTIVE: Positive Previous Pregnancies; Negative Breast Cancer, Endometriosis, Genital Herpes, Gonorrhea, Pelvic Inflammatory Disease, Syphilis or Uterine Prolapse MUSCULOSKELETAL: Negative Musculoskeletal Disorders or Bone Cancer ENDOCRINE: Negative Endocrine Disorders, Diabetes Mellitus Type 1 or Diabetes Mellitus Type 2 HEMATOLOGIC: Negative Blood Disorders or Sickle Cell Disease OTHER HISTORY: Negative Hospitalization, Autoimmune Disease, Down Syndrome, Developmental Delay, Shingles, Falls, Blood Transfusions, Blood Transfusion Reaction, Anesthesia Reactions, Organ Transplant, Chemotherapy, Radiation Therapy, Hyperbaric Therapy, MRSA, VRSA, Vancomycin-Resistant Enterococci, Human Immunodeficiency Virus (HIV), Chicken Pox, Measles, Mumps, Rubella ([place] Measles), Pertussis, Clostridium Difficile, Cancer, Breast Cancer, Cervical Cancer, Colorectal Cancer, Lung Cancer or Ovarian Cancer Family History FAMILY HISTORY: Negative Family Psychiatric Problems, Family Respiratory Disorders, Family Cardiac Disorders, Family Gastrointestinal Problems, Family Cancer, Family Surgery or Family Anesthesia Reaction Surgical History SURGICAL: Positive Abdominal Surgery and Lumpectomy; Negative Cardiac Surgery, Pacemaker, Mastectomy, Section or Organ Transplant Social History SMOKING STATUS: Never smoker ED Exam General Limitations: Present no limitations General appearance: Present alert and in no apparent distress Head Head exam: Present atraumatic Eye Eye exam: Present normal appearance, PERRL and EOMI ENT ENT exam: Present normal exam, normal oropharynx and mucous membranes moist Neck Neck exam: Present normal inspection, full ROM and trachea midline Chest Chest inspection: Present normal inspection and symmetric chest wall rise Respiratory Respiratory exam: Present normal lung sounds bilaterally Cardiovascular Cardiovascular exam: Present regular rate, normal rhythm and normal heart sounds Abdominal Exam Abdominal exam: Present soft and normal bowel sounds Extremities Exam Extremities exam: Present normal inspection and full ROM Back Exam Back exam: Present normal inspection and full ROM Neurological Exam Neurological exam: Present alert, oriented X3 and CN II-XII intact Psychiatric Psychiatric exam: Present normal affect and normal mood Skin Skin exam: Present warm, dry, intact and normal color Course Quality Measures none Orders Category Date Time Status US OB transvaginal Stat Exams 10/11/24 21:57 Completed Beta HCG,Quantitative Stat Lab 10/11/24 22:40 Completed CBC Stat Lab 10/11/24 22:40 Completed CMP [Comprehensive Metabolic Panel] Stat Lab 10/11/24 22:40 Completed UA [Urinalysis] Stat Lab 10/11/24 22:19 Completed Vital Signs Vital signs: Vital Signs Temperature 98.9 F 10/11/24 21:33 Pulse Rate 82 10/11/24 21:33 Respiratory Rate 20 10/11/24 21:33 Blood Pressure 117/79 10/11/24 21:33 Pulse Oximetry (%) 99 10/11/24 21:33 Oxygen Delivery Method Room Air 10/11/24 21:33 O2 at 99% on RA and WNLs Vaginal Bleeding MDM Narrative MDM Narrative: 23F at approximately 8 weeks and with no significant PMH presents to ED with pelvic cramping and vaginal bleeding for 1 day. Patient was here 3 weeks ago for this and US showed empty gestational sac. Physical exam reveals crying female. Patient is afebrile and alert. Patient is O+ blood type. Beta HCG increased compared to 3 weeks ago, but not enough. US also neg. Previous US reveals empty gestational sac. No gross anemia or leukocytosis. Likely incomplete/complete miscarriage. 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 Patient data External records reviewed:: [facility] previous records Clinical information provided by:: patient Social determinants that could affect healthcare access:: none Patient has the following chronic illnesses:: none How is presenting disease/condition affected by chronic disease/condition?: no chronic disease Evaluation data The following diagnostics were reviewed and interpreted by me:: lab results and radiology exam(s) Lab and/or radiology exams considered but not ordered:: ordered Interpretation Summary: above Medications / Prescriptions Medications or Prescriptions considered but not ordered:: not ordered Medication administrations:: n/a Consultations Consultation(s) initiated? (list below): No Diagnosis Vaginal Bleeding Differential Diagnosis: missed , threatened , dysfunctional uterine bleeding, menometrorrhagia, incomplete , ectopic without intrauterine and vaginal bleeding Most likely diagnosis given after review of the tests above:: incomplete miscarriage Admission Indicated Admission indicated?: not indicated Admission Request Was there a request for admission?: No Disposition Plan Disposition Plan: Discharge Discharge Attestation Discharge Attestation: The patient and all family members were given an opportunity to ask questions and understood the discharge instructions. Discharge instructions specifically effects, indications for sooner follow up or return to the emergency department, and the expected course of current diagnosis. Patient condition: Stable Discharge Plan Plan Patient Disposition: HOME (Self Care) Discharge Disposition comment: Stable Prescriptions/Referrals Prescriptions/Med Rec: No Action ibuprofen 800 mg tablet 800 mg PO Q8H PRN (Reason: pain) Qty: 30 0RF doxycycline hyclate 100 mg capsule 100 mg PO BID Qty: 6 0RF ferrous sulfate 325 mg (65 mg iron) tablet 325 mg PO QDAY Qty: 60 0RF Referrals: Jarvis Urias MD [Primary Care Provider] - In 1 week Problem List Clinical Impression: Incomplete miscarriage Patient/Caregiver Discharge Instructions Education Materials: Understanding Miscarriage: Emotions, ED Miscarriage, Incomplete Additional Instructions: Please follow-up with PCP/OBGYN within 24-48 hours and return immediately if symptoms worsen. Print Language: Ukrainian Stand Alone Forms: Patient Portal Info Letter PA/[facility] SUPERVISOR Supervising Physician PA/SILVANO Supervising Physician: Dr. Larry
[2024-10-11 22:36] LABS: Bilirubin,Urine Negative (Negative); Blood,Urine 3+ (Negative); Clarity,Urine Clear (Clear/Hazy); Color,Urine Yellow (Lt Yel-Yel); Glucose, Urine Negative (Negative); Ketones,Urine Negative (Negative); Leukocyte Esterase,Urine Negative (Negative); Nitrite,Urine Negative (Negative); PH,Urine 6.5 (5.0-7.0); Protein,Urine Trace (Neg - Trace); RBC,Urine 7 /hpf (0-3); Specific Gravity,Urine 1.035 (1.001-1.035); Squamous Epithelial Cell,Urine 1 /hpf (0-5); Urobilinogen,Urine Negative mg/dL (0.0-1.0); WBC,Urine 1 /hpf (0-5)
[2024-10-11 22:59] LABS: Basophils # (Auto) 0.0 Thou/mm3 (0.0-0.2); Basophils % (Auto) 0 % (0-2.5); Eosinophils # (Auto) 0.1 Thou/mm3 (0.0-0.5); Eosinophils % (Auto) 1 % (0-10); Hematocrit 35.8 % (36.0-46.0); Hemoglobin 12.4 g/dL (12.0-16.0); Immature Granulocytes Auto 0.03 Thou/mm3 (0.00-0.00); Lymphocytes # (Auto) 2.5 Thou/mm3 (1.0-4.8); Lymphocytes % (Auto) 28 % (10-50); Mean Corpuscular HGB Conc 34.6 g/dl (31.0-37.0); Mean Corpuscular Hemoglobin 31.5 pg (25.0-35.0); Mean Corpuscular Volume 91 fL (80-100); Monocytes # (Auto) 0.7 Thou/mm3 (0.0-0.8); Monocytes % (Auto) 8 % (0-12); Neutrophils # (Auto) 5.8 Thou/mm3 (1.8-7.7); Neutrophils % (Auto) 64 % (37-80); Nucleated Red Blood Cell # 0.00 Thou/mm3 (0.00-0.00); Nucleated Red Blood Cell % 0 /100 WBC (0); Platelet Count 225 Thou/mm3 (140-440); RDW Standard Deviation 43.8 fL (36.4-46.3); Red Blood Count 3.94 Miln/mm3 (4.00-5.20); White Blood Count 9.1 Thou/mm3 (3.6-11.0)
[2024-10-11 23:23] LABS: Alanine Aminotransferase 12 U/L (10-49); Albumin, Serum 4.3 gm/dL (3.5-5.0); Albumin/Globulin Ratio 1.8 (1.2-2.2); Alkaline Phosphatase 54 U/L (46-116); Anion Gap 11 (7-16); Aspartate Amino Transferase 21 U/L (0-34); BUN/Creatinine Ratio 11 Ratio (12-20); Bilirubin,Total 0.6 mg/dL (0.3-1.2); Blood Urea Nitrogen 9 mg/dL (9-23); Calcium 9.4 mg/dL (8.3-10.6); Calcium (Corrected) 9.4 mg/dL (8.5-10.1); Carbon Dioxide 24.1 mMol/L (20.0-31.0); Chloride 107 mMol/L (98-107); Creatinine (Component) 0.8 mg/dL (0.6-1.3); Estimated Creatinine Clearance 129.6 mL/min (>60); Globulin 2.4 gm/dL (2.3-3.5); Glucose 91 mg/dL (74-106); Osmolality,Calculated 281 (275-295); Potassium 3.6 mMol/L (3.4-5.1); Sodium 142 mMol/L (136-145); Total Protein 6.7 gm/dL (5.7-8.2); eGFR > 60 See Note
[2024-10-11 23:54] LABS: Beta HCG,Quantitative 65347 mIU/mL (<5.0)
== END 2024-10-12 00:12 | disposition home or self-care (01) ==
PROVIDERS: Physician Assistant; Emergency Provider Emergency Medicine; PCP Family Medicine; Referring Provider Nurse Practitioner Women's Health
DX: O03.4 Incomplete spontaneous abortion without complication (principal)
CPT/HCPCS: 36415; 76817; 80053; 81001; 84702; 85025; 99283